=== PATIENT | female | born 1995 | race African-American/Black ===

== ENCOUNTER 2024-03-06 05:47 | Emergency (ER) | payer BC ==
[~2024-03-06] VITALS: Ht 177.8 cm; Wt 71.0 kg
[2024-03-06 06:01] VITALS: TEMP 98.9; O2SAT 95
[2024-03-06 06:30] VITALS: BP 121/85; PULSE 77; RESP 16; O2SAT 100
== END 2024-03-06 11:39 | disposition home or self-care (01) ==
LOC: ER 05:47
DX: B37.0 Candidal stomatitis (principal)
CPT/HCPCS: 99281